=== PATIENT | female | born 1930 | race Caucasian/White ===

== ENCOUNTER 2018-07-02 10:44 | Emergency (ER) | payer MEDICARE ==
[2018-07-02] MEDS ORDERED: TETANUS/DIPHTHERIA TOXOID [ADULT] 0.5 ML VIAL IM ONE (12:47)
[2018-07-02] MEDS ORDERED: LIDOCAINE HCL MPF 1% 5ML VIAL ONE (13:49)
== END 2018-07-02 15:57 | disposition home or self-care (01) ==
LOC: EDH 10:44
DX: S61.411A Laceration without foreign body of right hand, initial encounter (principal); I10 Essential (primary) hypertension; E78.5 Hyperlipidemia, unspecified; W01.198A Fall on same level from slipping, tripping and stumbling with subsequent striking against other object, initial encounter; Y93.89 Activity, other specified; Y92.098 Other place in other non-institutional residence as the place of occurrence of the external cause; Y99.8 Other external cause status
CPT/HCPCS: 12045; 73130; 90471; 90714; 99284; J3490

== ENCOUNTER → 2018-10-19 | Outpatient (CLI) | payer MEDICARE | END | disposition home or self-care (01) | LOC: RAH 13:10 | PROVIDERS: ATTEND Family Medicine | DX: M48.54XA Collapsed vertebra, not elsewhere classified, thoracic region, initial encounter for fracture (principal) | CPT/HCPCS: 72146 ==

== ENCOUNTER → 2018-11-09 | Outpatient (CLI) | payer MEDICARE | END | disposition home or self-care (01) | LOC: RAH 10:57 | PROVIDERS: ATTEND Family Medicine | DX: Z01.818 Encounter for other preprocedural examination (principal); M47.815 Spondylosis without myelopathy or radiculopathy, thoracolumbar region; J84.9 Interstitial pulmonary disease, unspecified; I70.0 Atherosclerosis of aorta | CPT/HCPCS: 71046 ==